=== PATIENT | female | born 1955 | race Caucasian/White ===

== ENCOUNTER → 2017-01-15 | Outpatient (CLI) | payer MEDICARE, BC ==
[~2017-01-15] MED LIST: ADVAIR 100-501 EACH; ALB/IPRATROPIUM/1 E1; ALBUTEROL20 ml INH; ALLOPURINOL300 MG; ALLOPURINOL300 MG PO; ALPRAZOLAM0.5 MG; ATIVAN0.5 M1 PO; B12 HEALTH1000 MCG/1 PO; BENADRILINA25 MG PO; BENADRYL; CALCITRIOL0.25 MCG PO; CINNAMON PLUS1 EACH; CINNAMON3.7 ML PO; CIPRO PO; COLCHICINE; DIPHENHYDRAMINE50 M1 PO; EFFEXOR XR75 MG PO; ENALAPRIL MALE2.5 MG PO; FISH OIL 1,0001 CAP PO; FLEXERIL10 MG; FLEXERIL10 MG PO; FLONASE 0.05% N16 G1 INH; FLOVENT DI50 MCG/DIS IH; FOSAMAX PO; GLUCOTROL PO; LEVOTHROID112 MCG PO; LEVOXYL200 MC1 PO; LORAZEPAM1 MG PO; MEGA MULTIVITA1 EACH PO; METOPROLOL SUCC50 MG; METOPROLOL SUCC50 MG PO; METOPROLOL TAR25 MG PO; MILK OF MAGNESIA PO; MULTI VITAMIN1 EACH PO; NASONEX17 GM; NEXIUM PO; OMEGA 3 FISH1 CAP.EC; OMEGA-3100 MG PO; OMEPRAZOLE20 M2 PO; OSTEO BI-FLEX1 EAC1; OSTEO-BIFLEX PO; OXYCODONE HCL20 M1 PO; OXYCONTIN20 MG; OXYCONTIN20 MG PO; OYSTER CALCIUM500 MG PO; PERCOCET 10/31 UDTA1 PO; PERCOCET 10/3251 TAB PO; PHENERGAN25 M1 PO; PREDNISONE1 MG; PREDNISONE5 M1 PO; PRILOSEC PO; PRILOSEC20 M1; SERTRALINE HCL100 M1 PO; SERTRALINE HCL50 MG; SYNTHROID PO; SYNTHROID125; SYNTHROID125 PO; TRICOR PO; VASOTEC20 MG; VASOTEC20 MG PO; VITAMIN D-32000 UNI1 PO; VITAMIN D-32000 UNIT PO; VITAMIN D3 1,01 EACH; VITAMIN D31000 UNI1 PO; VITAMIN D34000 UNIT; ZOLOFT100 MG PO; ZOLOFT50 MG; ZOLOFT50 MG PO; ZYLOPRIM PO; [UNRECOGNIZED DRUG - OTHER]; [UNRECOGNIZED DRUG - OTHER] PO
--- NOTE | ~2017-01-15 | MY11 ---
[facility] A Service of [facility] & [facility] / [facility] RADIOLOGY TEXT RESULTS PATIENT: LEXY STROUD LOCATION: [facility] : 51 UNIT #: [id number] AGE: [address]: Shwetha Gunn MD SEX: F ORDER DR: [id number] [facility] [address] [place], [place] [address] [id number] O MR#: [id number] #: [id number] NAME: LEXY STROUD : 1955 SEX: F STUDY DATE/TIME: 01/15/2017 9:30 UNIT: [facility] ROOM: STUDY DESCRIPTION: MY Mammogram Screening Dig [facility] Attending Physician: Shwetha Gunn M.D. Referring Physician: Shwetha Gunn M.D. Ordering Physician: Shwetha Gunn M.D. Primary Care Physician: Shwetha Gunn M.D. MEDICAL IMAGING REPORT This report is preliminary unless electronic signature is present EXAM Bilateral digital screening mammogram with CAD COMPARISON Mammograms dated December 18, 2015, July 22, 2013, May 14, 2012 and March 28, 2012. INDICATION Breast cancer screening. 61-year-old asymptomatic female. No personal or family history of breast cancer. FINDINGS There are scattered fibroglandular densities. There are no suspicious findings in the left breast. Favored to represent artifact on the skin, possibly due to lotion or powder, there are possible developing microcalcifications in the anterior third of the 2 o'clock right breast. IMPRESSION 1. No mammographic evidence of malignancy in the left breast. 2. Suspected artifact from lotion or powder on the skin, simulating developing microcalcifications. Repeat CC and MLO views after appropriate cleaning of the skin of the right breast from approximately the 2-5 o'clock positions is recommended. This will be performed at no charge to the patient. If there are persistent findings in this location, then the exam would need to be converted into a right diagnostic mammography which would include spot magnification CC and spot magnification LM views. Patients over the age of 40 are entered into a reminder system with target due date for the next mammogram. A result letter will also be sent to the patient. BIRADS: 0 Technical recall STS. [facility] A Service of [facility] & [facility] / [facility] RADIOLOGY TEXT RESULTS PATIENT: LEXY STROUD LOCATION: [facility] : 51 UNIT #: [id number] AGE: [address]: Shwetha Gunn MD SEX: F ORDER DR: Dictated by... Gera Drake M.D. THIS IS AN ELECTRONICALLY VERIFIED REPORT Gera Drake M.D. at 01/19/2017 5:38 PM FAVIOLA/[email or web address] TD: 01/15/2017 11:17 JOB #: [id number] MEDICAL IMAGING REPORT Page 1 of 1 COPY
== END | disposition home or self-care (01) ==
LOC: CWCC 09:11
DX: Z12.31 Encounter for screening mammogram for malignant neoplasm of breast (principal); R92.8 Other abnormal and inconclusive findings on diagnostic imaging of breast
CPT/HCPCS: G0202